=== PATIENT | male | born 1970 | race Caucasian/White ===

== ENCOUNTER 2016-11-16 15:21 | Inpatient (IN) | payer OTHER ==
[~2016-11-16] VITALS: Ht 185.4 cm; Wt 108.8 kg
--- NOTE | ~2016-11-16 | P ---
[facility] [address] PROCEDURE REPORT Name: CHERIE CORDOVA Room #: 434-P [facility] IN M.R.#: [id number] Admission: 11/16/16 Attend Phys: Melly Meza MD Discharge: 11/17/16 Date of : 70 Report #: [id number] THIS REPORT FOR: //name// CC: Elmo Meza MD DATE OF SERVICE: 11/17/2016 PROCEDURE PERFORMED: Upper endoscopy with biopsies and esophageal dilation. HISTORY OF PRESENT ILLNESS: The patient is a 46-year-old male with a history of diabetes and end-stage renal disease, on hemodialysis with recent nausea, vomiting, increased belching, and dysphagia. He was placed on Reglan for suspected gastroparesis in August. No previous history of upper endoscopy. PROCEDURE: The risks and benefits of the procedure were explained to the patient, those risks including, but not limited to bleeding, perforation, the risk of sedation. He understood these risks and gave informed consent. Sedation was given using propofol per anesthesia. Next, using a standard OxiCooln upper endoscope, the scope was placed in the patient's mouth and advanced under direct vision through the esophagus, stomach and into the second portion of the duodenum. The esophagus was normal throughout. The GE junction was normal. No evidence of esophagitis. Overall, the gastric mucosa was normal. In the fundus and upper body, a mild gastritis was noted in the gastric antrum. Biopsies were obtained. No evidence of ulcerations or erosions. The pylorus was normal and patent. The duodenal bulb, first and second portion were all normal. Biopsies were also obtained to the second portion of the duodenum to rule out the possibility of celiac sprue. The scope was then brought back up into the patient's stomach and a Savary guidewire was inserted through the scope, leaving the guidewire in place as the scope was then withdrawn. Next, a 48-[place] Savary dilation of the esophagus was then performed without difficulty. The wire and the dilator were removed. The scope was reintroduced into the patient's stomach. There was no evidence of mucosal tear after dilation. The scope was then withdrawn and the procedure terminated. The patient tolerated the procedure well. IMPRESSION: 1. Mild gastritis. 2. Otherwise, normal upper endoscopy. RECOMMENDATIONS: 1. Await biopsy results. 2. Continue Pepcid. 3. Observe post-dilation. 4. We would continue Reglan. [address] [address] PROCEDURE REPORT Name: CHERIE CORDOVA Room #: 434-P [facility] IN M.R.#: [id number] Admission: 11/16/16 Attend Phys: Melly Meza MD Discharge: 11/17/16 Date of : 70 Report #: [id number] Thank you for allowing me to participate in his care. <ELECTRONICALLY SIGNED> By: Oj Escamilla MD 11/22/16 0824 1349 182 Oj Escamilla, /christopher
--- NOTE | ~2016-11-16 | HC ---
[facility] [place] [address] CONSULTATION Name: CHERIE CORDOVA JR Room #: 434-P [facility] IN M.R.#: [id number] Admission: 11/16/16 Attend Phys: Melly Meza MD Discharge: 11/17/16 Date of : 70 Report #: [id number] THIS REPORT FOR: //name// CC: Elmo Meza REASON FOR PRESENTATION: Difficulty swallowing. REASON FOR CONSULTATION: End-stage renal disease. HISTORY OF PRESENT ILLNESS: This is a very well known patient to me. He has an end-stage renal disease due to diabetes mellitus and hypertension. He is known to have all diabetic complications including what seems to be diabetic gastroparesis. He dialyzes every Sunday, Sunday and Sunday. He tells me that he started to have some difficulty swallowing that started on Sunday. This had been progressively worsening including liquids. He previously was admitted with GI symptoms and we started him on Reglan and that had improved his GI symptoms. He has never had any GI procedures. He visited with [facility] and was transferred for further evaluation and management of his GI issues. No weight loss. 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 No significant hematochezia, no melena. PAST MEDICAL HISTORY: 1. End-stage renal disease, maintained on dialysis every Sunday, Sunday and Sunday. 2. Hypertension. 3. All diabetic complications including nephropathy, neuropathy, retinopathy. 4. Hyperlipidemia. 5. Status post left BKA. 6. Multiple dialysis catheter. 7. AV fistula. ALLERGIES: TAPES. FAMILY HISTORY: Extensive and very positive for diabetes mellitus, end-stage renal disease, both sister and mom. MEDICATIONS: 1. Coreg. 2. . 3. Lasix. 4. Renvela. 5. NovoLog. SOCIAL HISTORY: No drug or alcohol abuse. He is disabled. He used to be a chiropractic person. [address] [address] CONSULTATION Name: ARTCHERIE NOE Room #: 434-P [facility] IN M.R.#: [id number] Admission: 11/16/16 Attend Phys: Melly Meza MD Discharge: 11/17/16 Date of : 70 Report #: [id number] REVIEW OF SYSTEMS: GENERAL: No fever or chills. CARDIOVASCULAR: No chest pain or palpitation. PULMONARY: No cough or hemoptysis. GASTROINTESTINAL: As per the history of present illness. GENITOURINARY: No frequency, no urgency. He still makes some urine. PHYSICAL EXAMINATION: GENERAL: He is alert, oriented, in no apparent distress. VITAL SIGNS: Blood pressure is 185/89. HEAD AND NECK: No jugular venous distention, no bruit, no thyromegaly. CHEST: Clear to auscultation bilaterally. CARDIOVASCULAR: Regular with no rub detected. ABDOMEN: Soft, nontender with no hepatosplenomegaly. LOWER EXTREMITIES: Post-below knee amputation on the left side. LABORATORY VALUES: Reviewed. Hemoglobin 9.8. Blood sugar is elevated at 260. Total bilirubin is elevated at 108. AST is elevated. KUB with no significant acute finding. ASSESSMENT, IMPRESSION AND PLAN: 1. End-stage renal disease. 2. Gastrointestinal symptoms. 3. Diabetes mellitus. 4. Hypertension. 5. looking urine. 6. Dialysis will be arranged today. 7. Gastrointestinal consultation obtained, will likely need an EGD. 8. Blood sugar control. 9. Blood pressure control. 10. PRN nausea and vomiting medications. 11. Stop IV fluids. 12. Evaluate for elevated liver enzymes and bilirubin. <ELECTRONICALLY SIGNED> By: Carmen Wallace MD 11/18/16 0748 [id number] [id number] Carmen Wallace MD /nt
--- NOTE | ~2016-11-16 | S ---
[facility] [place] [address] SURGICAL PATH RPT PROCEDURE Name: JOSÉ MIGUEL MANDUJANO JR Room #: 434-P [facility] IN M.R.#: [id number] Admission: 11/16/16 Date of : 70 Discharge: 11/17/16 Report #: [id number] Path Case #: [id number] PATHOLOGY REPORT COLLECTION DATE: 11/17/2016 RECEIVED DATE: 11/17/2016 SUBMITTING PHYS: Dr. Oj Escamilla OTHER PHYS: Dr. Elmo Shultz SPECIMEN(S) RECEIVED: A.Small bowel bx B.Gastric * * * * * * * * * * * * FINAL DIAGNOSIS: A. Small bowel, endoscopic biopsy: - No diagnostic abnormalities present. B. Gastric mucosa, gastric, endoscopic biopsy: - Mild reactive gastropathy. - Negative for intestinal metaplasia or atrophy. - Negative for Helicobacter pylori. COMMENT: Helicobacter pylori immunohistochemical stain performed on block B1 negative. (IUV:csd; d/t: 11/20/2016) PATHOLOGIST: Radha Mendoza M.D. REPORT ELECTRONICALLY SIGNED BY: Radha Mendoza M.D. DATE/TIME: 11/20/2016 16:09 * * * * * * * * * * * * GROSS PATHOLOGY: A. Received in formalin labeled "José Miguel Mandujano Jr., SB BX," are 4 segments of moreno soft tissue measuring 0.5 x 0.5 x 0.3 cm in aggregate dimensions and ranging from 0.3 to 0.5 cm in maximum dimension. The specimen is submitted entirely in cassette A1. B. Received in formalin labeled "José Miguel Mandujano JrBrandy, biopsy gastric," are 3 segments of moreno soft tissue measuring 0.6 x 0.5 x 0.3 cm in aggregate dimensions and ranging from 0.3 to 0.6 cm in maximum dimension. The specimen is submitted entirely in cassette B1. (KAH; 11/17/2016) CLINICAL HISTORY: [address] [address] SURGICAL PATH RPT PROCEDURE Name: ARTJOSÉ MIGUELTIGIST MARSHALL JR Room #: 434-P [facility] IN M.R.#: [id number] Admission: 11/16/16 Date of : 70 Discharge: 11/17/16 Report #: [id number] Path Case #: [id number] Dysphagia INITIAL CPT CODE(S): A; 30394 B; 05660, 80216 Professional services performed by [facility] at [address] , [place] [address] Technical services performed by [facility] at [address] [place] [address], [facility] [address] [address]. [facility] [address] [place] [id number] PHONE: [phone] DIRECTOR: All Soliz M.D. * * * END OF REPORT * * *
--- NOTE | ~2016-11-16 | H ---
[facility] [place] [address] HISTORY AND PHYSICAL Name: CHERIE CORDOVA Room #: 434-P ADM IN M.R.#: [id number] Admission: 11/16/16 Attend Phys: Jude Shultz MD Discharge: Date of : 70 Report #: [id number] THIS REPORT FOR: //name// CC: FAB Shultz DATE OF ADMISSION: 11/16/2016 PRIMARY DOCTOR: Fab Renae M.D. CHIEF COMPLAINT: Intractable nausea and vomiting. HISTORY OF PRESENT ILLNESS: The patient is a 46-year-old male with a history of end-stage renal disease on dialysis, diabetes, gastroparesis and GERD. He was directly admitted from his primary care physician's office secondary to intractable nausea and vomiting. He indicates that symptoms started on Sunday shortly after eating a pretty heavy meal at [employer]. Later on that evening, he had a lot of belching that produced foam and subsequent to that nausea and vomiting. He also reported having severe hiccups as well. Symptoms would briefly subside, but recur again with any oral intake. Additionally in his attempts to drink just liquids, he has had dysphagia with feelings of his "throat closing up" or the materials getting stuck in his throat. He feels that he can get rid of most of the belching, the foamy emesis and hiccups that he would do much better. He tried to take his medications this morning, but it all came back up again. He denies any abdominal pain with this. He has been on Reglan for his gastroparesis and famotidine for his reflux, but has never seen a GI doctor or had any GI procedures. Because he is unable to keep anything down with his history of diabetes and his blood pressure issues, we were asked to admit him. He denies any fever, chills, any urinary problems or any other issues. He did have diarrhea on Tuesdays about 5 or 6 episodes on the day his symptoms started, but that has since subsided. He has not had a BM since Sunday, couple of days ago. PAST MEDICAL HISTORY: End-stage renal disease on dialysis, hypertension, dyslipidemia, diabetes, left ankle surgery with subsequent complications with sepsis and BKA, diabetic neuropathy. PAST SURGICAL HISTORY: He had a left ankle surgery with subsequent hardware removal and an eventual BKA, back surgery. ALLERGIES: To TAPE. FAMILY HISTORY: Positive for diabetes, renal failure with his sisters and mom on dialysis. [address] [address] HISTORY AND PHYSICAL Name: CHERIE CORDOVA Room #: 434-P [facility] IN M.R.#: [id number] Admission: 11/16/16 Attend Phys: Jude Shultz MD Discharge: Date of : 70 Report #: [id number] CURRENT MEDICATIONS: Aspirin 325 daily, Nephrocaps 1 daily, Coreg 25 b.i.d., Pepcid 20 at bedtime, Lasix 80 daily, NovoLog 10 units a.c., Zestril 40 daily, omeprazole 10 daily, Renvela two tabs with meals, Zocor 20 daily, Nati-Naomie 1 daily. SOCIAL HISTORY: He does not smoke or drink. He is on disability. REVIEW OF SYSTEMS: A 14-point review of system was conducted, all negative except for above. PHYSICAL EXAMINATION: VITAL SIGNS: Blood pressure with systolic 190s and was afebrile. GENERAL: He is awake, alert, answering question appropriately, no acute respiratory distress. HEENT: Normocephalic, atraumatic. NECK: Supple. Pupils equal. Mucous membranes are moist. CARDIOVASCULAR: Regular rate and rhythm. No murmurs. LUNGS: Clear to auscultation bilaterally. No crackles or wheeze. ABDOMEN: Soft, no distention or tenderness. Normoactive bowel sounds. EXTREMITIES: No edema. Left lower extremity with BKA. LABS AND TESTING: Currently pending. ASSESSMENT AND PLAN: 1. Intractable nausea, vomiting, dysphagia, question of esophageal spasms versus stricture versus other. We will consult GI for their input for potential EGD and maybe gastric emptying study. We will also get a KUB, a CMP, lipase and a UA at this time. I do not see if we have done a gastric emptying study here on him. 2. History of gastroparesis. We will resume his Reglan. May be contributing to the above. 3. Gastroesophageal reflux disease. Again we will put him on Protonix for now. 4. Diabetes. Continue sliding scale insulin and will cut back on his scheduled medications. 5. End-stage renal disease on dialysis, consult renal. 6. Hypertension, we will put him on IV Lopressor and place him on Coreg for now. 7. History diet diabetic neuropathy. 8. Dyslipidemia. We can hold his medications for now. 9. Deep venous thrombosis prophylaxis with heparin. By: [id number] My Jazmin Meza MD /nt
[~2016-11-16 15:21] MED LIST: ASPIRIN325 PO; AZATHIOPRINE50 MG PO; BENAZEPRIL HCL40 MG PO; CARDURA4 MG PO; CARVEDILOL12.5 MG PO; CARVEDILOL6.25 MG PO; CEFAZOLIN 1GM VI1 G1 IV; CLONIDINE HCL0.3 M3 PO; CLONIDINE0.1 PO; COLACE 100 MG100 MG PO; COREG25 MG PO; DEMADEX20 MG PO; HUMALOG100 UNIT/1 SUBQ; HYDROCODON-ACE1 EAC7 PO; HYDROCODONE-AP1 EAC6 PO; HYDROCODONE-APA1 TA1 PO; LANTUS100 UNIT/M SUBQ; LASIX 40 MG TAB40 M2 PO; LEVEMIR SUBQ; LISINOPRIL10 MG PO; LISINOPRIL20 MG PO; LUCENTIS0.3 MG/0.0; NEPHROCAPS SOFT1 CAP PO; NORVASC5 MG PO; NOVOLOG100 UNIT/1 SUBQ; PEPCID20 MG PO; PRILOSEC 10MG C10 MG PO; RENA-VITE RX T1 EACH PO; RENVELA800 MG PO; TYLENOL325 MG PO; ZOCOR20 MG PO
[2016-11-16 17:00] VITALS: BP 181/94
[2016-11-16] MEDS ORDERED: REGLAN 10 MG TA10 MG PO (17:18)
[2016-11-16 17:32] LABS: HEMATOCRIT 29.9 % (42.0-52.0); HEMOGLOBIN 10.6 gm/dL (14.0-18.0); MCH 31.3 pg (26.0-34.0); MCHC 35.3 g/dL (28.0-37.0); MCV 88.7 fL (80.0-100.0); RBC 3.37 mil/uL (4.50-6.00); RDW 13.4 % (10.5-14.5); WBC 9.3 thou/uL (4.0-11.0)
[2016-11-16 17:42] LABS: CREATININE 10.2 mg/dL (0.7-1.3); POTASSIUM 4.3 mmol/L (3.5-5.1)
[2016-11-16 17:46] LABS: ALBUMIN 3.8 g/dL (3.4-5.0); TOTAL BILIRUBIN 1.8 mg/dL (<0.1-1.0); TOTAL PROTEIN 7.7 g/dL (6.4-8.2)
[2016-11-16 20:21] VITALS: BP 167/84
[2016-11-17 00:20] VITALS: BP 147/78
[2016-11-17 04:00] VITALS: BP 143/72
[2016-11-17 05:52] LABS: HEMATOCRIT 28.2 % (42.0-52.0); HEMOGLOBIN 9.8 gm/dL (14.0-18.0); MCHC 34.6 g/dL (28.0-37.0); MCV 89.6 fL (80.0-100.0); PLATELET COUNT 180 thou/uL (150-400); RBC 3.14 mil/uL (4.50-6.00); RDW 13.6 % (10.5-14.5); WBC 10.6 thou/uL (4.0-11.0)
[2016-11-17 06:20] LABS: MANUAL DIFF YES
[2016-11-17 07:24] LABS: URINE COLOR BROWN
[2016-11-17 07:40] LABS: ICTOTEST (BILI CONFIRMATORY) Positive (Negative)
[2016-11-17 07:41] LABS: SSA (PROTEIN CONFIRMATORY) 4+ (APPROX. >= 500) mg/dL (Negative)
[2016-11-17 07:46] LABS: CASTS None Seen /LPF (None Seen); SQUAMOUS None Seen /LPF (0-3)
[2016-11-17 07:47] LABS: URINE RBC 3-10 Few /HPF (0-2)
[2016-11-17 07:49] LABS: URINE WBC-REFLEX 0-5 Rare /HPF (0-5)
[2016-11-17 08:01] VITALS: BP 181/89
[2016-11-17] MEDS ORDERED: LEVEMIR SUBQ (08:05)
[2016-11-17 08:48] LABS: ABSOLUTE NEUTROPHILS 7.6 thou/uL (1.4-8.2); PLATELET ESTIMATE NORMAL; TOTAL CELL COUNT 100
[2016-11-17 14:42] VITALS: BP 150/72
[2016-11-17 17:01] VITALS: BP 150/72
== END 2016-11-17 17:00 | disposition home or self-care (01) | DRG 73 ==
LOC: 4S 15:21
PROVIDERS: Family Medicine
PROC: 5A1D00Z (ICD-10-PCS; 2016-11-16)
PROC: 0D758ZZ Dilation of Esophagus, Via Natural or Artificial Opening Endoscopic (ICD-10-PCS; principal; 2016-11-17)
PROC: 0DB68ZX Excision of Stomach, Via Natural or Artificial Opening Endoscopic, Diagnostic (ICD-10-PCS; principal; 2016-11-17)
PROC: 0DB98ZX Excision of Duodenum, Via Natural or Artificial Opening Endoscopic, Diagnostic (ICD-10-PCS; principal; 2016-11-17)
DX: E11.43 Type 2 diabetes mellitus with diabetic autonomic (poly)neuropathy (principal); N18.6 End stage renal disease; I12.0 Hypertensive chronic kidney disease with stage 5 chronic kidney disease or end stage renal disease; K31.84 Gastroparesis; E11.22 Type 2 diabetes mellitus with diabetic chronic kidney disease; E78.5 Hyperlipidemia, unspecified; K29.70 Gastritis, unspecified, without bleeding; K21.9 Gastro-esophageal reflux disease without esophagitis; Z99.2 Dependence on renal dialysis; Z83.3 Family history of diabetes mellitus; Z79.82 Long term (current) use of aspirin; Z79.899 Other long term (current) drug therapy; Z91.048 Other nonmedicinal substance allergy status; Z89.512 Acquired absence of left leg below knee
CPT/HCPCS: 10102; 32100; 62110; 62900; 70005